=== PATIENT | female | born 1990 | race Caucasian/White ===

== ENCOUNTER 2017-07-14 13:06 | Emergency (ER) | payer SELFPAY ==
--- NOTE | 2017-07-14 14:24 | EDM.PDOC ---
ED HPI GENERAL MEDICAL PROBLEM - General Chief Complaint: Headache Stated Complaint: HEADACHES AND THROAT HURTS Time Seen by Provider: 07/14/17 14:23 Source of Information: Reports: Patient History Limitations: Reports: No Limitations - History of Present Illness INITIAL COMMENTS - FREE TEXT/NARRATIVE: HISTORY AND PHYSICAL: History of present illness: Patient is a 27-year-old female who presents to the emergency room with complaints of throat pain which is causing a headache. She recently moved up here from [place] due to her 's job. States she has been doctoring with her primary care provider for the last year and a half regarding "something growing in the back my throat". She states she has had multiple throat cultures and has taken "so many antibiotics I lost count". She reports they were going to do a biopsy but moved and is now trying to get her insurance back. She has had a dull headache for the past 2 weeks but has been worse over the last 2 days states that it is primarily behind her left eye. He attributes the headache to the throat pain and "altered to change". He denies any recent head injury or trauma. Denies any dizziness or change in vision. Denies any chest pain or shortness of breath. Denies any fever, chills, abdominal pain, nausea, vomiting or diarrhea. Review of systems: As per history of present illness and below otherwise all systems reviewed and negative. Past medical history: As per history of present illness and as reviewed below otherwise noncontributory. Surgical history: As per history of present illness and as reviewed below otherwise noncontributory. Social history: No reported history of drug or alcohol abuse. Family history: As per history of present illness and as reviewed below otherwise noncontributory. Physical exam: Gen.: Well-developed and well-nourished 27-year-old female. Alert and oriented. Appears nontoxic and in no acute distress. HEENT: Atraumatic, normocephalic, pupils reactive, negative for conjunctival pallor or scleral icterus, mucous membranes moist, there is a slightly raised mild erythematous patch pattern to the posterior oropharynx without exudate, no lymphadenopathy, neck supple, nontender, trachea midline. No drooling or trismus. No meningeal signs. No neck pain. Lungs: Clear to auscultation, breath sounds equal bilaterally, chest nontender. Heart: S1S2, regular rate and rhythm Abdomen: Soft, nondistended, nontender. Negative for masses or hepatosplenomegaly. Negative for costovertebral tenderness. Pelvis: Stable nontender. Genitourinary: Deferred. Rectal: Deferred. Extremities: Atraumatic, negative for cords or calf pain. Neurovascular unremarkable. Neuro: Awake, alert, oriented. Cranial nerves II through XII unremarkable. Cerebellum unremarkable. Motor and sensory unremarkable throughout. Exam nonfocal. Patient does not have much information about the throat "growths" that she has been doctoring for with her primary in [place]. She states she would need to get her medical records to know exactly what was done and what she's been treated with. She says that the swab shows a large amount of "abnormal cells". When asked what the abnormal cells were, she states she is unsure. I did offer her IV fluid with some pain management. She states that she is allergic to multiple pain medications and the only one she is not allergic to is hydrocodone. She declines IV fluids and is willing to take oral [place] at this time. Will do routine lab work. CBC, CMP, strep screen were negative. We did discuss the importance of following up with our ear nose and throat, especially if she is going to be a resident here. Patient voices understanding. Prescription for miracle mouthwash has been prescribed. Patient voices understanding of care plan and denies any further questions at this time. Diagnostics: CBC, CMP, strep Therapeutics: [place] 5/325 Impression: Throat pain Headache Plan: 1. Your lab work today was normal. I strongly encourage that you follow-up with ear nose and throat for further evaluation of this chronic throat pain. May need a biopsy for further treatment. A referral has been done at this time and the phone number has been provided for you. 2. Miracle mouthwash has been prescribed help alleviate your throat discomfort. He may use 5-10 mL's report 46 hours as needed. Please gargle and swish in the mouth and spit after several seconds. He is not harmful if he swallowed this medication, but may cause some upset stomach. 3. Follow up with your primary care provider in the next 1-2 days. Return to the ED as needed and as discussed. Definitive disposition and diagnosis as appropriate pending reevaluation and review of above. Duration: Week(s):, Chronic Location: Reports: Neck head Pain Score (Numeric/FACES): 7 - Related Data Allergies Allergy/AdvReac Type Severity Reaction Status Date / Time codeine Allergy Respiratory Verified 07/14/17 13:37 Depression ketorolac [From Toradol] Allergy Hives Verified 07/14/17 13:37 leuprolide [From Lupron] Allergy Airway Verified 07/14/17 13:37 Tightness miconazole Allergy Rash Verified 07/14/17 13:37 [From Monistat 1 Combo Pack] morphine Allergy Rash Verified 07/14/17 13:37 oxycodone Allergy Vomiting Verified 07/14/17 13:37 Home Meds: Home Meds . [No Known Home Meds] 07/14/17 [History] Past Medical History - Past Surgical History HEENT Surgical History: Reports: Tonsillectomy Female Surgical History: Reports: Section, Hysterectomy Social & Family History - Family History Family Medical History: Noncontributory - Tobacco Use Smoking Status *Q: Current Every Day Smoker Years of Tobacco use: 7 Packs/Tins Daily: 10 - Recreational Drug Use Recreational Drug Use: Yes Recreational Drug Type: Reports: Marijuana/Hashish Recreational Drug Use Frequency: Not Used In Over 3 Months ED ROS GENERAL - Review of Systems Review Of Systems: ROS reveals no pertinent complaints other than HPI. - Physical Exam Exam: See Below (See dictation) Course - Vital Signs Last Recorded V/S: Last Vital Signs Temp 98.3 F 07/14/17 13:38 Pulse 85 07/14/17 13:38 Resp 18 07/14/17 13:38 BP 129/72 07/14/17 13:38 Pulse Ox 98 07/14/17 13:38 - Orders/Labs/Meds Orders: Active Orders 24 hr Category Date Time Status CULTURE STREP A CONFIRMATION [RM] Stat Lab 07/14/17 15:10 Results STREP SCRN A RAPID W CULT CONF [RM] Stat Lab 07/14/17 15:10 Results Labs: Laboratory Tests 07/14/17 07/14/17 Range/Units 15:05 15:05 WBC 8.53 (4.0-11.0) K/uL RBC 4.69 (4.30-5.90) M/uL Hgb 14.6 (12.0-16.0) g/dL Hct 41.4 (36.0-46.0) % MCV 88.3 (80.0-98.0) fL MCH 31.1 (27.0-32.0) pg MCHC 35.3 (31.0-37.0) g/dL RDW Std Deviation 37.7 (28.0-62.0) fl RDW Coeff of Bess 12 (11.0-15.0) % Plt Count 227 (150-400) K/uL MPV 10.50 (7.40-12.00) fL Neut % (Auto) 57.8 (48.0-80.0) % Lymph % (Auto) 32.9 (16.0-40.0) % [place] % (Auto) 8.7 (0.0-15.0) % Eos % (Auto) 0.2 (0.0-7.0) % Baso % (Auto) 0.4 (0.0-1.5) % Neut # (Auto) 4.9 (1.4-5.7) K/uL Lymph # (Auto) 2.8 H (0.6-2.4) K/uL [place] # (Auto) 0.7 (0.0-0.8) K/uL Eos # (Auto) 0.0 (0.0-0.7) K/uL Baso # (Auto) 0.0 (0.0-0.1) K/uL Nucleated RBC % 0.0 /100WBC Nucleated RBCs # 0 K/uL Sodium 139 (136-146) mmol/L Potassium 4.7 (3.5-5.1) mmol/L Chloride 105 (98-110) mmol/L Carbon Dioxide 26 (21-31) mmol/L BUN 17 (6.0-23.0) mg/dL Creatinine 0.8 (0.6-1.5) mg/dL Est Cr Clr Drug Dosing 93.71 mL/min Estimated GFR (MDRD) > 60.0 ml/min Glucose 131 H (60-110) mg/dL Calcium 9.7 (8.8-10.8) mg/dL Total Bilirubin 0.4 (0.1-1.5) mg/dL AST 19 (5-40) IU/L ALT 15 (8-54) IU/L Alkaline Phosphatase 66 (40-150) Total Protein 7.5 (6.0-8.0) g/dL Albumin 4.6 (3.5-5.0) g/dL Globulin 2.9 (2.0-3.5) g/dL Albumin/Globulin Ratio 1.6 (1.3-2.8) Meds: Medications Discontinued Medications Generic Name Dose Route Start Last Admin Trade Name Young PRN Reason Stop Dose Admin Hydrocodone Bitart/Acetaminophen 1 tab 07/14/17 14:53 07/14/17 15:06 [place] 325-5 Mg PO 07/14/17 14:54 1 tab ONETIME ONE Administration Departure - Departure Time of Disposition: 15:44 Disposition: Home, Self-Care 01 Clinical Impression: Chronic throat pain Headache Qualifiers: Headache type: unspecified Headache chronicity pattern: unspecified pattern - Discharge Information Referrals: PCP,None [Primary Care Provider] - Forms: ED Department Discharge Additional Instructions: My general discharge The following information is given to patients seen in the emergency department who are being discharged to home. This information is to outline your options for follow-up care. We provide all patients seen in our emergency department with a follow-up referral. The need for follow-up, as well as the timing and circumstances, are variable depending upon the specifics of your emergency department visit. If you don't have a primary care physician on staff, we will provide you with a referral. We always advise you to contact your personal physician following an emergency department visit to inform them of the circumstance of the visit and for follow-up with them and/or the need for any referrals to a consulting specialist. The emergency department will also refer you to a specialist when appropriate. This referral assures that you have the opportunity for follow-up care with a specialist. All of these measure are taken in an effort to provide you with optimal care, which includes your follow-up. Under all circumstances we always encourage you to contact your private physician who remains a resource for coordinating your care. When calling for follow-up care, please make the office aware that this follow-up is from your recent emergency room visit. If for any reason you are refused follow-up, please contact the [facility] Emergency Department at and asked to speak to the emergency department charge nurse. [facility] - ENT [address] [place] [address], [place] [address] [facility] [address] [place] [address] 1. Your lab work today was normal. I strongly encourage that you follow-up with ear nose and throat for further evaluation of this chronic throat pain. May need a biopsy for further treatment. A referral has been done at this time and the phone number has been provided for you. 2. Miracle mouthwash has been prescribed help alleviate your throat discomfort. He may use 5-10 mL's report 46 hours as needed. Please gargle and swish in the mouth and spit after several seconds. He is not harmful if he swallowed this medication, but may cause some upset stomach. 3. Follow up with your primary care provider in the next 1-2 days. Return to the ED as needed and as discussed. - My Orders Last 24 Hours: My Active Orders 07/14/17 15:10 CULTURE STREP A CONFIRMATION [RM] Stat STREP SCRN A RAPID W CULT CONF [RM] Stat - Assessment/Plan Last 24 Hours: My Active Orders 07/14/17 15:10 CULTURE STREP A CONFIRMATION [RM] Stat STREP SCRN A RAPID W CULT CONF [RM] Stat
[2017-07-14] MEDS ORDERED: Acetaminophen/HYDROcodone 325-5 MG Tab PO ONE (14:53)
[2017-07-14 15:28] LABS: CHLORIDE,CL 105 mmol/L (98-110); SODIUM,NA 139 mmol/L (136-146)
== END 2017-07-14 16:10 | disposition home or self-care (01) ==
LOC: MW.ED 13:06
DX: R51 Headache (principal); R07.0 Pain in throat; F17.210 Nicotine dependence, cigarettes, uncomplicated; Z88.5 Allergy status to narcotic agent; Z88.6 Allergy status to analgesic agent
CPT/HCPCS: 36415; 80053; 85025; 87081; 87880; 99284; A9270